=== PATIENT | female | born 1955 | race Two or more races ===

== ENCOUNTER → 2017-08-10 08:07 | Outpatient (CLI) | payer OTHER | END | disposition home or self-care (01) | LOC: LAB 08:01 | DX: E03.8 Other specified hypothyroidism (principal); E55.9 Vitamin D deficiency, unspecified ==

== ENCOUNTER 2017-08-10 09:12 | Outpatient (CLI) | payer OTHER | END 2017-08-10 09:23 | disposition home or self-care (01) | LOC: SONOGRAMA 09:12 | DX: E03.8 Other specified hypothyroidism (principal); E04.1 Nontoxic single thyroid nodule ==

== ENCOUNTER → 2017-08-10 | Outpatient (CLI) | payer OTHER | END | disposition home or self-care (01) | LOC: NUCLEAR 09:00 | DX: I87.2 Venous insufficiency (chronic) (peripheral) (principal); E55.9 Vitamin D deficiency, unspecified ==

== ENCOUNTER → 2017-08-12 | Outpatient (CLI) | payer OTHER | END | disposition home or self-care (01) | LOC: NUCLEAR 12:13 | DX: I73.9 Peripheral vascular disease, unspecified (principal); I87.2 Venous insufficiency (chronic) (peripheral); E55.9 Vitamin D deficiency, unspecified ==

== ENCOUNTER → 2017-08-24 | Outpatient (CLI) | payer OTHER | END | disposition home or self-care (01) | LOC: NUCLEAR 08:16 | DX: R00.0 Tachycardia, unspecified (principal); R00.2 Palpitations ==

== ENCOUNTER → 2017-12-26 | Emergency (ER) | payer OTHER ==
[~2017-12-26] VITALS: Ht 162.6 cm; Wt 77.1 kg
[~2017-12-26] MED LIST: ENALAPRIL MALEA20 MG; GLUCOPHAGE XR500 MG; PREVACID 24HR15 MG
== END | disposition left against medical advice (07) ==
LOC: ER 23:07
DX: Z53.20 Procedure and treatment not carried out because of patient's decision for unspecified reasons (principal)

== ENCOUNTER 2017-12-28 08:27 | Emergency (ER) | payer OTHER ==
[~2017-12-28] VITALS: Ht 165.1 cm; Wt 77.1 kg
== END 2017-12-28 11:23 | disposition home or self-care (01) ==
LOC: ER 08:27
DX: K29.60 Other gastritis without bleeding (principal)

== ENCOUNTER 2018-01-10 07:09 | Outpatient (CLI) | payer OTHER | END 2018-01-10 07:16 | disposition home or self-care (01) | LOC: TOM 07:09 | DX: R10.84 Generalized abdominal pain (principal); K59.09 Other constipation | CPT/HCPCS: 74177; Q9965 ==

== ENCOUNTER 2018-12-23 07:48 | Outpatient (CLI) | payer OTHER | END 2018-12-23 07:56 | disposition home or self-care (01) | LOC: TOM 07:48 | DX: R22.43 Localized swelling, mass and lump, lower limb, bilateral (principal) ==

== ENCOUNTER 2018-12-23 12:50 | Outpatient (CLI) | payer OTHER | END 2018-12-23 13:00 | disposition home or self-care (01) | LOC: NUCLEAR 12:50 | DX: M79.604 Pain in right leg (principal) ==

== ENCOUNTER 2020-04-12 12:07 | Outpatient (CLI) | payer OTHER | END 2020-04-12 12:16 | disposition home or self-care (01) | LOC: MAMO-SONO 12:07 | PROVIDERS: ATTEND Obstetrics & Gynecology | DX: Z12.31 Encounter for screening mammogram for malignant neoplasm of breast (principal); Z87.898 Personal history of other specified conditions; N60.11 Diffuse cystic mastopathy of right breast; N60.12 Diffuse cystic mastopathy of left breast; I10 Essential (primary) hypertension; M54.5 Low back pain; Z01.810 Encounter for preprocedural cardiovascular examination; E03.8 Other specified hypothyroidism; E78.89 Other lipoprotein metabolism disorders; E11.51 Type 2 diabetes mellitus with diabetic peripheral angiopathy without gangrene; E55.9 Vitamin D deficiency, unspecified; E11.9 Type 2 diabetes mellitus without complications; E66.8 Other obesity; M89.8X0 Other specified disorders of bone, multiple sites; E04.8 Other specified nontoxic goiter ==

== ENCOUNTER 2020-08-22 13:26 | Outpatient (CLI) | payer OTHER | END 2020-08-22 13:27 | disposition home or self-care (01) | LOC: NUCLEAR 13:26 | PROVIDERS: ATTEND Internal Medicine | DX: M54.5 Low back pain (principal); M89.9 Disorder of bone, unspecified; M81.0 Age-related osteoporosis without current pathological fracture; Z13.820 Encounter for screening for osteoporosis ==

== ENCOUNTER → 2020-09-11 10:51 | Outpatient (CLI) | payer OTHER | END | disposition home or self-care (01) | LOC: NUCLEAR 10:51 | PROVIDERS: ATTEND Internal Medicine | DX: R55 Syncope and collapse (principal); I10 Essential (primary) hypertension ==

== ENCOUNTER 2023-11-15 11:12 | Outpatient (CLI) | payer OTHER | END 2023-11-15 11:21 | disposition home or self-care (01) | LOC: SONOGRAMA 11:12 | DX: R10.2 Pelvic and perineal pain (principal) ==

== ENCOUNTER 2024-03-30 12:41 | Outpatient (CLI) | payer OTHER | END 2024-03-30 12:50 | disposition home or self-care (01) | LOC: MAMO-SONO 12:41 | PROVIDERS: ATTEND Internal Medicine | DX: I10 Essential (primary) hypertension (principal); E03.9 Hypothyroidism, unspecified; E78.9 Disorder of lipoprotein metabolism, unspecified; E11.51 Type 2 diabetes mellitus with diabetic peripheral angiopathy without gangrene; E55.9 Vitamin D deficiency, unspecified; E11.9 Type 2 diabetes mellitus without complications; M89.9 Disorder of bone, unspecified; L13.0 Dermatitis herpetiformis; R10.84 Generalized abdominal pain; I70.0 Atherosclerosis of aorta; E11.29 Type 2 diabetes mellitus with other diabetic kidney complication; Z13.820 Encounter for screening for osteoporosis; Z12.31 Encounter for screening mammogram for malignant neoplasm of breast ==

== ENCOUNTER 2024-06-20 07:21 | Outpatient (CLI) | payer OTHER | END 2024-06-20 07:27 | disposition home or self-care (01) | LOC: NUCLEAR 07:21 | PROVIDERS: ATTEND Internal Medicine | DX: I20.9 Angina pectoris, unspecified (principal) | CPT/HCPCS: 78452; 93017; A9500 ==